=== PATIENT | female | born 1955 ===

== ENCOUNTER 2021-09-19 05:56 | Day surgery (SDC) | payer OTHER ==
[~2021-09-19 05:56] MED LIST: ATORVASTATIN CA40 MG; CHILDREN'S ASPI81 MG; COZAAR50 MG; INDERAL PO; NORVASC5 MG; TAPAZOLE5 M1
[2021-09-19] MEDS ORDERED: PERCOCET 5-3251 EACH PO (15:14)
== END 2021-09-19 20:30 | disposition home or self-care (01) ==
LOC: CIR.AMB 05:56
PROVIDERS: ATTEND Surgery
DX: E05.00 Thyrotoxicosis with diffuse goiter without thyrotoxic crisis or storm (principal); Z20.822 Contact with and (suspected) exposure to COVID-19